=== PATIENT | male | born 1995 | race Caucasian/White ===

== ENCOUNTER 2016-11-10 14:04 | Emergency (ER) ==
[2016-11-10 14:11] VITALS: BP 123/72; TEMP 97.6; BMI 37.3
[2016-11-10] MEDS ORDERED: NORCO 10-325 PO STA (14:17)
[2016-11-10] MEDS ORDERED: TORADOL IM STA (14:17)
--- NOTE | 2016-11-10 14:41 | DI ---
Exam: Three x-rays of the right wrist. Comparison: CTA performed 12/05/2014. Reason for exam: Trauma. FINDINGS: No acute fracture or dislocation. The joint spaces are well maintained. No unexplained calcific soft tissue densities or radiopaque retained foreign bodies. Impression: No acute fracture or dislocation in the right wrist.
--- NOTE | 2016-11-10 14:41 | DI ---
EXAM: Views of the right hand HISTORY: Trauma TECHNIQUE: AP lateral, oblique views of the right hand were obtained. FINDINGS: No acute fractures are seen. There is anatomic alignment. The soft tissues are normal. IMPRESSION: No acute fracture dislocation seen within the right hand.
--- NOTE | 2016-11-10 15:33 | ED.PDOC ---
General ED Provider: Dr. LORI MARTINEZ Chief Complaint: Hand Pain/Injury Stated Complaint: HAND AND WRIST PAIN Time Seen by Physician: 14:10 (HAND STUCK IN SEBAS MORATAYA ) Mode of Arrival: Walk-In Information Source: Patient, Family Exam Limitations: No limitations Primary Care Provider: MAHAD DSOUZA Nursing and Triage Documentation Reviewed and Agree: Yes (NO PAIN OVER SNUFF NOX OR AXILA LOAD OF THE THE THUMB INVOLVED ) Musculoskeletal Complaint Exam - Hand/Wrist Complaint/Exam Location of Pain: Reports: Right, Hand, Wrist Mechanism of Injury: Reports: Trauma (BLUNT FORCE) Onset/Duration: 1HR Symptoms Are: Still present Onset of Pain: Reports: Immediate Initial Severity: Moderate Current Severity: Mild Location: Reports: Discrete Alleviating: Reports: Rest Aggravating: Reports: Movement Associated Signs and Symptoms: Denies: Swelling, Redness, Bruising, Fever, Weakness, Numbness, Tingling Dominant Hand: Right Related Surgical History: Reports: None Differential Diagnoses: Closed Fracture Review of Systems - Review Of Systems Constitutional: Reports: No symptoms Eyes: Reports: No symptoms Ears, Nose, Mouth, Throat: Reports: No symptoms Respiratory: Reports: No symptoms Cardiac: Reports: No symptoms GI: Reports: No symptoms : Reports: No symptoms Musculoskeletal: Reports: Joint pain Skin: Reports: No symptoms Neurological: Reports: No symptoms Endocrine: Reports: No symptoms Hematologic/Lymphatic: Reports: No symptoms All Other Systems: Reviewed and Negative Past Medical History - Past Medical History Previously Healthy: Yes Endocrine: Reports: None Cardiovascular: Reports: None Respiratory: Reports: None Hematological: Reports: None Gastrointestinal: Reports: None Genitourinary: Reports: None Neuro/Psych: Reports: None Musculoskeletal: Reports: None Cancer: Reports: None - Surgical History General Surgical History: Reports: Appendectomy - Family History Family History: Reports: None - Social History Smoking Status: Current every day smoker, Heavy tobacco smoker Hx Substance Use: No Alcohol Screening: None - Immunizations Tetanus Shot up to Date: No Physical Exam - Physical Exam Appearance: Well-appearing, No pain distress, Well-nourished Eyes: COLE, EOMI, Conjunctiva clear ENT: Ears normal, Nose normal, Oropharynx normal Respiratory: Airway patent, Breath sounds clear, Breath sounds equal, Respirations nonlabored Cardiovascular: RRR, Pulses normal, No rub, No murmur GI/: Soft, Nontender, No masses, Bowel sounds normal, No Organomegaly Musculoskeletal: Normal strength, ROM intact, No edema, No calf tenderness Skin: Warm, Dry, Normal color Neurological: Sensation intact, Motor intact, Reflexes intact, Cranial nerves intact, Alert, Oriented Psychiatric: Affect appropriate, Mood appropriate Interpretation - Radiology Interpretation Radiology Interpretation By: Radiologist Radiology Results: No acute changes Critical Care Note - Critical Care Note Total Time (mins): 0 Course - Course Orders, Labs, Meds: Orders Category Date Time Status Hydrocodone Bit/Acetaminophen [[place] 10-325] MEDS 11/10/16 14:17 Discontinued 1 tab PO ONCE STA Ketorolac Tromethamine [Toradol] MEDS 11/10/16 14:17 Discontinued 60 mg IM ONCE STA HAND, RIGHT 3 VIEWS Stat RADS 11/10/16 14:17 Completed WRIST, RIGHT 3 VIEWS Stat RADS 11/10/16 14:18 Completed Medications Discontinued Medications Generic Name Dose Route Start Last Admin Trade Name Freq PRN Reason Stop Dose Admin Acetaminophen/Hydrocodone Bitart 1 tab 11/10/16 14:17 11/10/16 14:32 [place] 10-325 PO 11/10/16 14:18 1 tab ONCE STA Administration Ketorolac Tromethamine 60 mg 11/10/16 14:17 11/10/16 14:33 Toradol IM 11/10/16 14:18 60 mg ONCE STA Administration Vital Signs: Temp Pulse Resp BP Pulse Ox 11/10/16 14:05 97.6 F 88 20 123/72 98 Departure - Departure Time of Disposition: 15:33 Disposition: HOME SELF-CARE Discharge Problem: Hand pain, Injury of hand Sprain of right hand Qualifiers: Encounter type: initial encounter Qualifier Code: (S63.91XA) Sprain of unspecified part of right wrist and hand, initial encounter Sprain of right wrist Qualifiers: Encounter type: initial encounter Qualifier Code: (S63.501A) Unspecified sprain of right wrist, initial encounter Instructions: Sprain (ED), Wrist Sprain (ED) Condition: Good Pt referred to PMD for follow-up: No Additional Instructions: Please call your Family Physician as soon as possible to schedule a follow-up appointment. Allergies/Adverse Reactions: Allergies ibuprofen Adverse Reaction (Verified 09/08/15 14:32) caused gi bleed with prolonged use
== END 2016-11-10 15:50 | disposition home or self-care (01) ==
LOC: ED 14:04
DX: S63.91XA Sprain of unspecified part of right wrist and hand, initial encounter (principal); S63.501A Unspecified sprain of right wrist, initial encounter; W22.8XXA Striking against or struck by other objects, initial encounter; F17.210 Nicotine dependence, cigarettes, uncomplicated
CPT/HCPCS: 96372; 99283